=== PATIENT | female | born 2000 | race Two or more races ===

== ENCOUNTER 2025-01-29 09:08 | Emergency (ER) | payer SELFPAY ==
--- NOTE | 2025-01-29 09:20 | EKG_ITS ---
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
[2025-01-29 09:22] VITALS: BP 127/78; PULSE 135; RESP 20; TEMP 37.7; O2SAT 95; BMI 29.4
--- NOTE | 2025-01-29 09:48 | PC.NURSE ---
Patient left ER states, I'm not gonna wait and I don't want the tylenol , spoke with provider conor sykes aware patient wanting to leave without further treatment. encouraged patient to return. Patient left without out signing AMA form.
--- NOTE | 2025-01-29 09:51 | PD.EDADDENDU ---
Emergency Room Addendum Addendum Narrative: Patient left before being seen by me. Ventura Shultz MD
--- NOTE | 2025-01-29 09:55 | PC.NURSE ---
LAB ATTEMPTED TO CALL PT NO RESPONSE IN LOBBY. PER REGISTRATION PT VALENCIA. WILL CALL AGAIN
--- NOTE | 2025-01-29 10:02 | EDNOTE_ITS ---
ED Anxiety RME/HPI General Chief Complaint: Anxiety Stated Complaint: HAVING PALPITATIONS FOR SEVERAL HRS ; HX ANXIETY Source: patient Arrival date/time: 01/29/25 09:08 24-year-old female with a history of anxiety presents to the emergency room with a chief complaint of palpitations x 2 hours. Patient denies any chest pain or difficulty breathing. Mode of arrival: ambulatory Limitations: no limitations Related Data Home Medications ?Medication ?Instructions ?Recorded ?Confirmed hydroxyzine HCl 25 mg tablet 25 mg PO TID PRN Anxiety 05/26/24 05/26/24 sertraline 25 mg tablet 25 mg PO QDAY 05/26/2405/26 Allergies Allergy/AdvReac Type Severity Reaction Status Date / Time amoxicillin Allergy Severe RASH Verified 01/29/25 09:12 Review of Systems Review of Systems Systems Reviewed: All systems reviewed, normal except as documented Constitutional Constitutional: Reports system reviewed and no additional complaints, except as documented, Denies fatigue, Denies fever(s), Denies headache(s) and Denies weakness Eyes Eyes: Reports system reviewed and no additional complaints, except as documented, Denies blurry vision and Denies change in vision ENT Ears, Nose, Mouth, and Throat: Reports system reviewed and no additional complaints, except as documented, Denies otalgia, Denies headache(s), Denies nasal congestion, Denies throat swelling and Denies vertigo Cardiovascular Cardiovascular: Reports system reviewed and no additional complaints, except as documented, Denies chest pain, Denies dyspnea, Denies dyspnea on exertion, Reports palpitations and Reports rapid heart rate Respiratory Respiratory: Reports system reviewed and no additional complaints, except as documented, Denies chest congestion, Denies cough, Denies dyspnea, Denies dyspnea on exertion and Denies wheezing Gastrointestinal Gastrointestinal: Reports system reviewed and no additional complaints, except as documented, Denies abdominal pain, Denies cramping, Denies nausea and Denies vomiting Genitourinary Genitourinary: Reports system reviewed and no additional complaints, except as documented Musculoskeletal Musculoskeletal: Reports system reviewed and no additional complaints, except as documented and Denies back pain Integumentary/Breasts Skin/Breast: Reports system reviewed and no additional complaints, except as documented and Denies wounds Neurologic Neurologic: Reports system reviewed and no additional complaints, except as documented, Denies confusion, Denies headache(s), Denies lack of coordination, Denies vertigo and Denies weakness Psychiatric Psychiatric: Reports system reviewed and no additional complaints, except as documented, Denies anxiety, Denies confusion, Denies depression, Denies paranoia, Denies suicidal ideation and Denies tactile hallucinations Endocrine Endocrine: Reports system reviewed and no additional complaints, except as documented, Denies fatigue and Reports palpitations Hematologic/Lymphatic Hematologic/Lymphatic: Reports system reviewed and no additional complaints, except as documented and Denies lymphadenopathy Allergic/Immunologic Allergic/Immunologic: Reports system reviewed and no additional complaints, except as documented, Denies throat swelling, Denies urticaria and Denies wheezing Past Medical History Past Medical History NEUROLOGIC: Negative Neurological Disorders CARDIAC: Positive Cardiac Disorders and Cardiac Arrhythmia; Negative Congestive Heart Failure RESPIRATORY: Negative Chronic Obstructive Pulmonary Disease (COPD) GASTROINTESTINAL: Negative Gastrointestinal Disorders or Hepatitis GENITOURINARY: Negative Renal Disease REPRODUCTIVE: Negative Breast Cancer or Pelvic Inflammatory Disease MUSCULOSKELETAL: Negative Musculoskeletal Disorders ENDOCRINE: Negative Endocrine Disorders, Diabetes Mellitus Type 1 or Diabetes Mellitus Type 2 HEMATOLOGIC: Negative Blood Disorders OTHER HISTORY: Negative Hospitalization, Autoimmune Disease, Shingles, Falls, B lood Transfusions, Anesthesia Reactions, Organ Transplant, Human Immunodeficiency Virus (HIV), Chicken Pox, Measles, Mumps, Rubella (Filipino Measles), Pertussis, Clostridium Difficile, Cancer or Breast Cancer Family History FAMILY HISTORY: Negative Family Respiratory Disorders, Family Cardiac Disorders, Family Gastrointestinal Problems or Family Cancer Surgical History SURGICAL: Negative Cardiac Surgery, Endocrine Surgery, Ear Surgery, Abdominal Surgery, Joint Replacement, Mastectomy or Organ Transplant Social History SMOKING STATUS: Never smoker ED Exam General Limitations: Present no limitations General appearance: Present alert and in no apparent distress Head Head exam: Present atraumatic Eye Eye exam: Present normal appearance, PERRL and EOMI ENT ENT exam: Present normal exam, normal oropharynx and mucous membranes moist Neck Neck exam: Present normal inspection, full ROM and trachea midline Chest Chest inspection: Present normal inspection and symmetric chest wall rise Respiratory Respiratory exam: Present normal lung sounds bilaterally; Absent respiratory distress, wheezes, stridor, accessory muscle use or prolonged expiratory phase Cardiovascular Cardiovascular exam: Present regular rate, normal rhythm, tachycardia, irregular rhythm, +S1 and +S2; Absent bradycardia, normal heart sounds, diastolic murmur, rubs, gallop or clicks Abdominal Exam Abdominal exam: Present soft and normal bowel sounds Extremities Exam Extremities exam: Present normal inspection and full ROM Back Exam Back exam: Present normal inspection and full ROM Neurological Exam Neurological exam: Present alert, oriented X3 and CN II-XII intact Psychiatric Psychiatric exam: Present normal affect and normal mood Skin Skin exam: Present warm, dry, intact and normal color Course Quality Measures none Orders Category Date Time Status Bedside COVID-19 Antigen Test NOW Care 01/29/25 09:21 Active Bedside Influenza A&B Antigen Test NOW Care 01/29/25 09:21 Active EKG (ED ONLY) *Do not use* NOW Care 01/29/25 09:21 Completed EKG (ED Only) Stat Exams 01/29/25 09:20 Draft BNP [B-Type Natriuretic Peptide] Stat Lab 01/29/25 09:45 Ordered CBC Stat Lab 01/29/25 09:45 Ordered CMP [Comprehensive Metabolic Panel] Stat Lab 01/29/25 09:45 Ordered Drug Screen,Urine Stat Lab 01/29/25 09:46 Ordered Troponin I Stat Lab 01/29/25 09:45 Ordered UA, C/S IF [Urinalysis, C/S if Indicated] Stat Lab 01/29/25 09:46 Ordered Acetaminophen Tab [Tylenol ES Tab] Med 01/29/25 09:20 Discontinued 1,000 mg PO X1 ONE Vital Signs Vital signs: Vital Signs Temperature 99.9 F 01/29/25 09:22 Pulse Rate 135 H 01/29/25 09:22 Respiratory Rate 20 01/29/25 09:22 Blood Pressure 127/78 01/29/25 09:22 Pulse Oximetry (%) 95 01/29/25 09:22 Oxygen Delivery Method Room Air 01/29/25 09:22 O2 saturation 95% within normal limits Procedures -ED EKG Interpretation #1: Date of EK01/29/25 Time of EK:00 Rate: 129 Interpretation: Reviewed by me EKG Impression: Sinus tachycardia Additional EKG comment: EKG shows sinus tachycardia at [address] deviation Anxiety MDM Narrative MDM Narrative: 24-year-old female with a history of anxiety presents to the emergency room with a chief complaint of palpitations x 2 hours. Patient denies any chest pain or difficulty breathing Patient is hemodynamically stable and in no apparent respiratory distress. She is tachycardic at 135 bpm Patient denies any chest pain. EKG was completed and shows sinus tachycardia at [address] deviation. The patient has a strong heart sounds during auscultation. S1 and S2 was noted there are no murmurs clicks or gallops. Patient's temperature is 99.9 she is not tachypneic she has clear bilateral lung sounds and states she has some mild congestion. COVID-19 and influenza were negative Patient eloped prior to final disposition Patient data External records reviewed:: [facility] previous records Clinical information provided by:: patient Social determinants that could affect healthcare access:: none Patient has the following chronic illnesses:: No chronic illness How is presenting disease/condition affected by chronic disease/condition?: no chronic disease Evaluation data The following diagnostics were reviewed and interpreted by me:: lab results and radiology exam(s) Lab and/or radiology exams considered but not ordered:: Labs and radiology exams considered and ordered Interpretation Summary: N/A Medications / Prescriptions Medications or Prescriptions considered but not ordered:: Medication given Medication administrations:: Medication Administration History Discontinued Medications Acetaminophen (Acetaminophen 500 Mg Tablet) 1,000 mg PO X1 ONE Stop: 01/29/25 09:21 Last Admin: 01/29/25 09:44 Dose: Not Given Documented By: DIONICIO Non-Admin Reason: Patient Refused Consultations Consultation(s) initiated? (list below): No Diagnosis Differential diagnosis anxiety: hyperventilation, panic disorder and acute anxiety Most likely diagnosis given after review of the tests above:: Acute anxiety Admission Indicated Admission indicated?: not indicated Admission Request Was there a request for admission?: No Disposition Plan Disposition Plan: other (specify) Discharge Attestation Discharge Attestation: Patient eloped prior to final disposition Discharge Plan Plan Patient Disposition: Elopement Disposition Comment: Stable Prescriptions/Referrals Prescriptions/Med Rec: No Action sertraline 25 mg Tablet 25 mg PO QDAY hydroxyzine HCl 25 mg Tablet 25 mg PO TID PRN (Reason: Anxiety) Problem List Clinical Impression: Eloped from emergency department Patient/Caregiver Discharge Instructions Print Language: Occitan
== END 2025-01-29 10:08 | disposition left against medical advice (07) ==
LOC: SERX 09:57
PROVIDERS: Emergency Provider Emergency Medicine
DX: R00.2 Palpitations (principal); Z53.29 Procedure and treatment not carried out because of patient's decision for other reasons; F41.9 Anxiety disorder, unspecified
CPT/HCPCS: 80053; 80307; 81001; 83880; 84484; 85025; 93005; 99281